=== PATIENT | male | born 1995 ===

== ENCOUNTER 2021-02-02 19:00 | Emergency (ER) ==
[~2021-02-02] VITALS: Ht 177.8 cm; Wt 81.8 kg
[2021-02-02] MEDS ORDERED: GUAI100L6 PO (19:08)
[2021-02-02] MEDS ORDERED: IBUP1TAB6 PO (19:08)
[2021-02-02] MEDS ORDERED: MELO15TA28 PO (19:08)
[2021-02-02] MEDS ORDERED: D-ME118L PO (19:08)
== END 2021-02-02 19:38 | disposition left against medical advice (07) ==
LOC: M ED 19:00
DX: Z53.21 Procedure and treatment not carried out due to patient leaving prior to being seen by health care provider (principal)